=== PATIENT | male | born 1960 | race African-American/Black ===

== ENCOUNTER 2023-12-29 18:42 | Inpatient (IN) | payer BC ==
[2023-12-29 19:57] LABS: BASO % 0.9 % (0-2.0); EOS % 4.8 % (0-4.5); HEMATOCRIT 32.9 % (35.4-49); HEMOGLOBIN 10.7 GM/dL (11.7-16.9); LYMPH % 12.7 % (8-40); MCH 26.1 pg (25.7-33.7); MCHC 32.4 g/dl (32.0-35.9); MEAN CELL VOLUME 80.6 fl (80-96); MONO % 6.3 % (3.8-10.2); NEUT % 75.3 % (42.8-82.8); PLATELET COUNT 288 10^3/uL (134-434); RBC 4.09 M/mm3 (4.00-5.60); RDW 16.4 % (11.9-15.9); WHITE BLOOD COUNT 7.4 K/mm3 (4.0-10.0)
[2023-12-29 20:02] LABS: CALCIUM 9.9 mg/dL (8.5-10.1); INR 1.09 (0.83-1.09); PROTHROMBIN TIME (PATIENT) 12.6 SEC (9.7-13.0)
[2023-12-29 20:03] LABS: ALBUMIN 3.8 g/dl (3.4-5.0)
[2023-12-29 20:04] LABS: BLOOD UREA NITROGEN 19.5 mg/dL (7-18)
[2023-12-29 20:05] LABS: ACTIVATED PTT 32.7 SECONDS (25.2-36.5)
[2023-12-29 20:06] LABS: CREATININE 1.2 mg/dL (0.55-1.3)
[2023-12-29 20:08] LABS: TOT PROT 8.4 g/dl (6.4-8.2)
[2023-12-29 20:09] LABS: BILIRUBIN,TOTAL 0.4 mg/dL (0.2-1)
[2023-12-29] MEDS: SODIUM CHLORIDE 1,000 ML IV SCH (21:22)
[2023-12-29 21:28] LABS: URINE APPEARANCE CLEAR; URINE BILIRUBIN NEGATIVE (NEGATIVE); URINE COLOR YELLOW; URINE GLUCOSE (UA) 3+ (NEGATIVE); URINE KETONE NEGATIVE (NEGATIVE); URINE LEUK ESTERASE NEGATIVE (NEGATIVE); URINE NITRITE NEGATIVE (NEGATIVE); URINE PROTEIN TRACE (NEGATIVE); URINE UROBILINOGEN 0.2 mg/dL (0.2-1.0)
[2023-12-29 23:52] LABS: COCAINE, UR NEGATIVE (NEGATIVE); METHADONE, UR NEGATIVE (NEGATIVE); OPIATES, URI NEGATIVE (NEGATIVE); URINE BARBITURATES NEGATIVE (NEGATIVE); URINE BENZODIAZEPINES NEGATIVE (NEGATIVE)
[2023-12-29 23:53] LABS: PHENCYCLIDINE,URINE NEGATIVE (NEGATIVE); URINE AMPHETAMINES NEGATIVE (NEGATIVE)
[2023-12-30] MEDS: INSULIN ASPART SLIDING SCALE (NOVOLOG) 1 VIAL SQ SCH (06:15)
[2023-12-30 07:57] LABS: POTASSIUM 3.8 mmol/L (3.5-5.1)
[2023-12-30 08:08] LABS: CALCIUM 9.5 mg/dL (8.5-10.1)
[2023-12-30 08:09] LABS: ALBUMIN 3.2 g/dl (3.4-5.0); BLOOD UREA NITROGEN 17.6 mg/dL (7-18)
[2023-12-30 08:12] LABS: MAGNESIUM 1.9 mg/dL (1.8-2.4); PHOSPHOROUS 3.9 mg/dL (2.5-4.9)
[2023-12-30 08:13] LABS: BILIRUBIN,TOTAL 0.3 mg/dL (0.2-1); TOT PROT 7.1 g/dl (6.4-8.2)
[2023-12-30] MEDS ORDERED: ASPIRIN COATED 81 MG TABLET.EC PO SCH (10:00)
[2023-12-30] MEDS: SACUBITRIL/VALSARTAN 97 MG-103 MG TABLET PO SCH (10:20)
[2023-12-30] MEDS: ASPIRIN COATED 81 MG TABLET.EC PO SCH (10:20)
[2023-12-30] MEDS: CLOPIDOGREL BISULFATE 75 MG TABLET (FP) PO SCH (10:20)
[2023-12-30] MEDS: SPIRONOLACTONE 25 MG TABLET PO SCH (10:21)
[2023-12-30] MEDS: ENOXAPARIN NA (PORCINE) 40 MG/0.4 ML DISP.SYRIN SQ SCH (10:21)
[2023-12-30] MEDS: EZETIMIBE 10 MG TABLET (FP) PO SCH (10:21)
[2023-12-30] MEDS: CARVEDILOL 6.25 MG TABLET (FP) PO SCH (12:31)
[2023-12-30] MEDS: ATORVASTATIN CA 80 MG TABLET (FP) PO SCH (21:19)
[2023-12-30] MEDS ORDERED: ATORVASTATIN CA 40 MG TABLET (FP) PO SCH (22:00)
[2023-12-31 08:11] LABS: EOS % 5.9 % (0-4.5); HEMATOCRIT 27.7 % (35.4-49); HEMOGLOBIN 8.9 GM/dL (11.7-16.9); LYMPH % 25.1 % (8-40); MCHC 32.2 g/dl (32.0-35.9); MEAN CELL VOLUME 80.9 fl (80-96); MONO % 8.8 % (3.8-10.2); NEUT % 59.2 % (42.8-82.8); PLATELET COUNT 252 10^3/uL (134-434); RBC 3.43 M/mm3 (4.00-5.60)
[2023-12-31 08:20] LABS: POTASSIUM 3.9 mmol/L (3.5-5.1)
[2023-12-31 08:22] LABS: BLOOD UREA NITROGEN 17.5 mg/dL (7-18); CALCIUM 9.2 mg/dL (8.5-10.1)
[2023-12-31 08:26] LABS: CREATININE 1.1 mg/dL (0.55-1.3)
[2023-12-31] MEDS: VANCOMYCIN/WATER 1250 MG 1,250 MG/250 ML BAG IVPB SCH ×2 (19:10→19:12)
[2023-12-31] MEDS: CEFEPIME HCL 2 GM VIAL (RESTRICTED TO ID) IVPB SCH ×2 (19:11→19:12)
[2023-12-31] MEDS: PIPERACILLIN/TAZOB 3.375 GM 3.375 GM in DEXTROSE 5%-WATER - 50 ML IVPB SCH (20:22)
[2023-12-31] MEDS: DOXYCYCLINE HYCLATE 100 MG CAPSULE PO SCH (20:28)
[2024-01-01 06:26] LABS: BASO % 1.1 % (0-2.0); EOS % 6.9 % (0-4.5); HEMATOCRIT 28.9 % (35.4-49); HEMOGLOBIN 9.3 GM/dL (11.7-16.9); MEAN CELL VOLUME 81.2 fl (80-96); MEAN PLT VOLUME 8.1 fl (7.5-11.1); MONO % 9.8 % (3.8-10.2); NEUT % 55.2 % (42.8-82.8); PLATELET COUNT 244 10^3/uL (134-434); RBC 3.56 M/mm3 (4.00-5.60); RDW 15.7 % (11.9-15.9)
[2024-01-01 06:33] LABS: INR 1.14 (0.83-1.09); PROTHROMBIN TIME (PATIENT) 13.2 SEC (9.7-13.0)
[2024-01-01 06:36] LABS: ACTIVATED PTT 30.5 SECONDS (25.2-36.5)
[2024-01-01 07:00] LABS: POTASSIUM 4.3 mmol/L (3.5-5.1)
[2024-01-01 07:02] LABS: CALCIUM 8.8 mg/dL (8.5-10.1)
[2024-01-01 07:03] LABS: BLOOD UREA NITROGEN 18.2 mg/dL (7-18); MAGNESIUM 1.9 mg/dL (1.8-2.4)
[2024-01-01 07:06] LABS: CREATININE 1.1 mg/dL (0.55-1.3); PHOSPHOROUS 3.8 mg/dL (2.5-4.9)
[2024-01-01 07:08] LABS: BILIRUBIN,TOTAL 0.4 mg/dL (0.2-1); TOT PROT 6.8 g/dl (6.4-8.2)
[2024-01-01] MEDS: FERROUS SO4 325 MG TABLET (FP) PO SCH (10:57)
[2024-01-01] MEDS: ASCORBIC ACID 500 MG TABLET (FP) PO SCH (10:57)
[2024-01-01] MEDS ORDERED: COLLAGENASE CLOSTRIDIUM HIST. 30 GRAMS TUBE TP SCH (17:00)
[2024-01-01] MEDS: PIPERACILLIN/TAZOB 4.5 GM 4.5 GM in DEXTROSE 5%-WATER 100 ML IVPB SCH (21:36)
[2024-01-02 07:40] LABS: BASO % 0.9 % (0-2.0); EOS % 8.5 % (0-4.5); HEMATOCRIT 28.8 % (35.4-49); HEMOGLOBIN 9.4 GM/dL (11.7-16.9); LYMPH % 20.6 % (8-40); MCH 26.4 pg (25.7-33.7); MCHC 32.7 g/dl (32.0-35.9); MEAN CELL VOLUME 80.6 fl (80-96); MEAN PLT VOLUME 8.1 fl (7.5-11.1); MONO % 10.4 % (3.8-10.2); NEUT % 59.6 % (42.8-82.8); PLATELET COUNT 251 10^3/uL (134-434); RBC 3.58 M/mm3 (4.00-5.60); RDW 15.4 % (11.9-15.9); WHITE BLOOD COUNT 5.3 K/mm3 (4.0-10.0)
[2024-01-02 08:25] LABS: CALCIUM 8.7 mg/dL (8.5-10.1)
[2024-01-02 08:29] LABS: CREATININE 1.2 mg/dL (0.55-1.3)
[2024-01-04 07:38] LABS: BASO % 0.9 % (0-2.0); EOS % 5.3 % (0-4.5); HEMOGLOBIN 9.9 GM/dL (11.7-16.9); LYMPH % 26.4 % (8-40); MCH 26.6 pg (25.7-33.7); MCHC 33.1 g/dl (32.0-35.9); MEAN CELL VOLUME 80.3 fl (80-96); MEAN PLT VOLUME 8.4 fl (7.5-11.1); MONO % 9.5 % (3.8-10.2); NEUT % 57.9 % (42.8-82.8); PLATELET COUNT 260 10^3/uL (134-434); RBC 3.74 M/mm3 (4.00-5.60); RDW 15.6 % (11.9-15.9); WHITE BLOOD COUNT 5.4 K/mm3 (4.0-10.0)
[2024-01-04 07:49] LABS: POTASSIUM 4.1 mmol/L (3.5-5.1)
[2024-01-04 07:51] LABS: CALCIUM 9.1 mg/dL (8.5-10.1)
[2024-01-04 07:52] LABS: BLOOD UREA NITROGEN 15.4 mg/dL (7-18); MAGNESIUM 1.7 mg/dL (1.8-2.4)
[2024-01-04 07:55] LABS: CREATININE 1.1 mg/dL (0.55-1.3); PHOSPHOROUS 3.4 mg/dL (2.5-4.9)
[2024-01-04 07:56] LABS: BILIRUBIN,TOTAL 0.4 mg/dL (0.2-1); TOT PROT 6.9 g/dl (6.4-8.2)
[2024-01-04] MEDS: MAGNESIUM SULF 50% (8.12 MEQ/2 ML-1 GM VIAL) IVPB ONE (10:08)
[2024-01-05 06:44] LABS: EOS % 6.9 % (0-4.5); HEMATOCRIT 29.4 % (35.4-49); HEMOGLOBIN 9.6 GM/dL (11.7-16.9); MCH 26.1 pg (25.7-33.7); MCHC 32.6 g/dl (32.0-35.9); MEAN CELL VOLUME 80.1 fl (80-96); MEAN PLT VOLUME 8.2 fl (7.5-11.1); MONO % 10.3 % (3.8-10.2); NEUT % 56.8 % (42.8-82.8); PLATELET COUNT 263 10^3/uL (134-434); RBC 3.68 M/mm3 (4.00-5.60); RDW 15.6 % (11.9-15.9); WHITE BLOOD COUNT 5.4 K/mm3 (4.0-10.0)
[2024-01-05 06:57] LABS: POTASSIUM 3.9 mmol/L (3.5-5.1)
[2024-01-05 07:00] LABS: ALBUMIN 2.9 g/dl (3.4-5.0); MAGNESIUM 2.1 mg/dL (1.8-2.4)
[2024-01-05 07:03] LABS: CREATININE 1.1 mg/dL (0.55-1.3); PHOSPHOROUS 3.4 mg/dL (2.5-4.9)
[2024-01-05 07:04] LABS: BILIRUBIN,TOTAL 0.3 mg/dL (0.2-1)
[2024-01-05 07:05] LABS: TOT PROT 6.6 g/dl (6.4-8.2)
[2024-01-05 08:58] LABS: ERYTHROCYTE SEDIMENTATION RATE 50 mm/hr (0-20)
[2024-01-06 08:33] LABS: BASO % 1.5 % (0-2.0); EOS % 7.5 % (0-4.5); HEMATOCRIT 28.6 % (35.4-49); HEMOGLOBIN 9.5 GM/dL (11.7-16.9); LYMPH % 25.3 % (8-40); MCH 26.3 pg (25.7-33.7); MCHC 33.1 g/dl (32.0-35.9); MEAN CELL VOLUME 79.5 fl (80-96); MEAN PLT VOLUME 8.2 fl (7.5-11.1); MONO % 9.7 % (3.8-10.2); PLATELET COUNT 249 10^3/uL (134-434); RDW 15.6 % (11.9-15.9); WHITE BLOOD COUNT 4.9 K/mm3 (4.0-10.0)
[2024-01-06 08:47] LABS: POTASSIUM 3.9 mmol/L (3.5-5.1)
[2024-01-06 09:29] LABS: BLOOD UREA NITROGEN 14.2 mg/dL (7-18)
[2024-01-06 09:30] LABS: ALBUMIN 2.9 g/dl (3.4-5.0); MAGNESIUM 1.9 mg/dL (1.8-2.4)
[2024-01-06 09:32] LABS: PHOSPHOROUS 3.4 mg/dL (2.5-4.9)
[2024-01-06 09:33] LABS: BILIRUBIN,TOTAL 0.5 mg/dL (0.2-1)
[2024-01-06 09:34] LABS: TOT PROT 6.6 g/dl (6.4-8.2)
[2024-01-06] MEDS: EZETIMIBE 10 MG TABLET (FP) PO SCH (10:20)
[2024-01-06 15:31] VITALS: RESP 18
[2024-01-06 15:32] VITALS: BMI 21.2
[2024-01-06 18:11] VITALS: BP 152/90; PULSE 80; TEMP 98.6
== END 2024-01-06 19:40 | disposition home or self-care (01) | DRG 45 ==
LOC: JER 18:42 → JERBED 21:29 → OBSVTOIN 12-30 00:52 → EDBD 12-30 00:52 → J4S 12-30 01:38
PROVIDERS: ADMIT Internal Medicine; ATTEND Internal Medicine
DX: I63.512 Cerebral infarction due to unspecified occlusion or stenosis of left middle cerebral artery (principal); G93.41 Metabolic encephalopathy; E44.0 Moderate protein-calorie malnutrition; E11.51 Type 2 diabetes mellitus with diabetic peripheral angiopathy without gangrene; I11.0 Hypertensive heart disease with heart failure; I50.22 Chronic systolic (congestive) heart failure; E11.649 Type 2 diabetes mellitus with hypoglycemia without coma; T87.81 Dehiscence of amputation stump; Y83.9 Surgical procedure, unspecified as the cause of abnormal reaction of the patient, or of later complication, without mention of misadventure at the time of the procedure; D50.9 Iron deficiency anemia, unspecified; E78.5 Hyperlipidemia, unspecified; I25.10 Atherosclerotic heart disease of native coronary artery without angina pectoris; M79.5 Residual foreign body in soft tissue; R47.1 Dysarthria and anarthria; T87.44 Infection of amputation stump, left lower extremity; Z68.21 Body mass index [BMI] 21.0-21.9, adult
CPT/HCPCS: 0241U-QW; 36415; 70450-TC; 70496-TC; 70498-TC; 71045-TC-FY; 73610-TC-LT-FY; 73630-TC-LT; 73718-TC-LT; 75635-TC; 80048; 80053; 80061; 80307; 81003; 82272; 82550; 82553; 82607; 82728; 82746; 82962; 83036; 83540; 83550; 83735; 84100; 84443; 84466; 84484; 85025; 85045; 85610; 85651; 85730; 86140; 86780; 86850; 86900; 86901; 87070; 87086; 87186; 87205; 93005; 93010; 93306-TC; 97116-GP; 97161-GP; 99285-25; G0378; Q9967